=== PATIENT | female | born 1980 | race Caucasian/White ===

== ENCOUNTER 2018-04-28 14:53 | Emergency (ER) | payer OTHER ==
[~2018-04-28] VITALS: Ht 157.5 cm; Wt 82.5 kg
[~2018-04-28 14:53] MED LIST: ASCO1CAP3; ERGO500037 PO; PREN1CAP
[2018-04-28 15:01] VITALS: TEMP 37; Ht 157.5 cm; Wt 82.5 kg
[2018-04-28] MEDS ORDERED: SODIUM CHLORIDE 0.9% 1000ML 1,000 ML IV STA (15:25)
[2018-04-28] MEDS ORDERED: MULT-240 PO (15:41)
[2018-04-28] MEDS ORDERED: CHOL1000 PO (15:41)
--- NOTE | 2018-04-28 16:54 | DIAGNOSTIC IMAGING REPORT ---
HEAD CT NONCONTRAST CT DOSE: 679.75 mGycm HISTORY: Fall. Head injury. Evaluate for hemorrhage or pathology TECHNIQUE: Multiaxial CT images of the head were performed without the use of intravenous contrast. Automated exposure control was utilized for this study. A dose lowering technique was utilized adhering to the principles of ALARA. Comparison: Head CT 02/18/2018. Findings: The paranasal sinuses and mastoid air cells are clear. No acute calvarial fractures. Prior left posterior craniotomy. Left parietal scalp swelling. Right parietal approach ventriculostomy catheter terminates at the third ventricle. This remains unchanged. Interval placement of a right frontal approach ventriculostomy catheter which also terminates at the third ventricle. Mild ventricular megaly remains unchanged. There is no mass, hematoma, midline shift, acute infarct. Bilateral basal ganglia calcifications remain unchanged. Impression: 1. Left posterior scalp swelling. No acute intracranial hemorrhage. 2. Mild ventriculomegaly. This remains unchanged despite the presence of a new right frontal approach ventriculostomy catheter. Therefore, this could represent catheter malfunction. Electronically signed by: Sathya Carroll M.D. 04/28/2018 4:53 PM Dictated Date/Time: 04/28/2018 4:46 PM
[2018-04-28 17:13] LABS: BASO % 0.5 %; BASO ABS # 0.04 K/uL (0-0.2); EOS % 0.9 %; EOS ABS # 0.08 K/uL (0-0.5); HEMATOCRIT 41.4 % (37-47); HEMOGLOBIN 14.1 g/dL (12.0-16.0); IG# 0.02 K/uL (0.00-0.02); LYMPH ABS # 2.48 K/uL (1.2-3.4); MEAN CELL VOLUME 88.8 fL (80-100); MEAN CORPUSCULAR HEMOGLOBIN 30.3 pg (25-34); MEAN CORPUSCULAR HGB CONC 34.1 g/dl (32-36); MEAN PLATELET VOLUME 8.9 fL (7.4-10.4); MONO % 8.9 %; MONO ABS # 0.76 K/uL (0.11-0.59); NEUT % 60.5 %; NEUT ABS # 5.17 K/uL (1.4-6.5); PLATELET COUNT 316 K/uL (130-400); RED CELL DISTRIBUTION WIDTH CV 12.7 % (11.5-14.5); RED CELL DISTRIBUTION WIDTH SD 40.7 fL (36.4-46.3); WHITE BLOOD COUNT 8.55 K/uL (4.8-10.8)
[2018-04-28 17:27] LABS: CALCIUM 9.6 mg/dl (8.5-10.1); CREATININE 0.65 mg/dl (0.60-1.20)
[2018-04-28] MEDS ORDERED: METO25TA3 PO (17:30)
[2018-04-28] MEDS ORDERED: ATOR-22 PO (17:30)
[2018-04-28] MEDS ORDERED: FLUO10CA48 PO (17:30)
--- NOTE | 2018-04-28 18:11 | DIAGNOSTIC IMAGING REPORT ---
CHEST 2 VIEWS ROUTINE, SKULL <4 VIEWS, CERVICAL SPINE 2 OR 3 VIEWS, ABDOMEN 2 VIEWS HISTORY: vp strategic planning shunt, syncope/dizzy COMPARISON: Shunt series 02/18/2018. FINDINGS: Right frontal and right parietal approach ventriculostomy catheters which terminate at the midline. Left posterior craniotomy is again noted. Right-sided shunt tubing connects to the frontal approach catheter. The right parietal approach ventriculostomy catheter appears to have been disconnected. The right frontal approach catheter tubing is also seen within the right neck and courses into the abdomen. This terminates in the left lower quadrant. The tubing appears intact. There is an old shunt tube seen within the right neck which does not extend to the ventriculostomy catheters. This is also disconnected at the midline of the anterior chest. This tubing terminates in the left side of the abdomen. This is unchanged in the prior study. IMPRESSION: 1. The right parietal approach ventriculostomy catheter has been disconnected in the interval. 2. The right ventriculoperitoneal shunt tubing now connects to the right frontal approach ventriculostomy catheter. The tubing appears intact. This terminates in the left lower quadrant. 3. There is again noted an old disconnected shunt tube. Electronically signed by: Sathya Carroll M.D. 04/28/2018 6:09 PM Dictated Date/Time: 04/28/2018 6:01 PM
--- NOTE | 2018-04-28 18:36 | EMERGENCY ROOM VISIT NOTE ---
History Report prepared by Henna: Sheryl Hernandez Under the Supervision of: Dr. Ji Arvizu M.D. First contact with patient: 15:12 Chief Complaint: FALL Stated Complaint: HIT HEAD,FALL History of Present Illness The patient is a 37 year old female who presents to the Emergency Room with complaints of a fall today. Per mother, the patient has a new shunt. Per mother , the patient had a 6 hour shift today and states that the patient felt "foggy" and that the patient was unable to do tasks that she is normally able to do. Her mother states that this is the patient's first shift in awhile and states that her shifts are usually 4 hours long. The patient states that she fell out of her shower and hit her head today after work. The patient reports that she remembers being in the bathtub and denies losing consciousness. The patient currently denies nausea, numbness, tingling, shortness of breath, back pain, or pain anywhere. The patient also denies recent illness. Her mother states that the patient had a headache after the fall but the patient states that her headache is gone now. Per mother, the patient has intermittently been "foggy." recently. The patient's mother states that the patient has fallen out of the tub in the past. Her mother states that the patient has been following with neurology at [place] where the patient had an EEG done which showed no seizure activity. Per mother, the patient has also had intermittent vaginal spotting since October which is when the patient last had a menstrual cycle. Her mother states that the patient was supposed to have a D & C done in January but states that they did not want to interfere with the shunt. Her mother states that the patient is scheduled to have a D & C in late May. Per mother, the patient is on Fluoxetine, blood pressure medication, cholesterol medication, Vitamin D, and a one a day pill. Her mother states that the patient is not on any hormonal or seizure medications. Source of History: patient, parent Onset: today Position: other (generalized) Quality: other (fall) Associated Symptoms: + headache (resolved now), No LOC, No SOB, No back pain , No weakness, No numbness Review of Systems See HPI for pertinent positives and negatives. A total of ten systems were reviewed and were otherwise negative. Past Medical & Surgical Medical Problems: (1) Brain tumor (benign) (2) Presence AV shunt Family History FHx: cancer Social History Smoking Status: Never Smoker Marital Status: single Housing Status: lives with family Occupation Status: unemployed Current/Historical Medications Scheduled Atorvastatin (Lipitor), 20 MG PO HS Cholecalciferol (Vitamin D3), 1,000 INTER.UNIT PO DAILY Fluoxetine (Prozac), 10 MG PO QAM Metoprolol Succ (Toprol Xl) (Toprol-Xl), 25 MG PO HS Multiple Vitamins W/ Minerals (Womens One Daily), 1 TAB PO DAILY Allergies Coded Allergies: No Known Allergies (Unverified , 04/28/18) Physical Exam Vital Signs Date Time Temp Pulse Resp B/P (MAP) Pulse Ox O2 Delivery O2 Flow Rate FiO2 04/28/18 18:46 80 144/108 98 04/28/18 16:27 75 16 130/94 94 04/28/18 15:01 37.0 86 18 138/93 98 Room Air Physical Exam GENERAL: Awake, alertx3, well-appearing, in no distress HENT: Mild left occipital hematoma. No lacs. Right parietal FACILITIES MAINTENANCE MANAGER shunt appreciated. Oropharynx unremarkable. EYES: Normal conjunctiva. Sclera non-icteric. Extraocular motions are intact. Pupils are equal, round, and reactive to light. NECK: Supple. No nuchal rigidity. RESPIRATORY: Clear to auscultation. No wheezes. Normal respiratory effort. CARDIAC: Normal rate. Normal rhythm. Extremities warm and well perfused. GI: Soft, non-distended. No tenderness to palpation. No rebound or guarding. RECTAL: Deferred. MUSCULOSKELETAL: Atraumatic. Chest examination reveals no tenderness. LOWER EXTREMITIES: Calves are equal size bilaterally and non-tender. No edema NEURO: Normal sensorium. No sensory or motor deficits noted. No facial droop. No aphasia. Ambulatory SKIN: Warm and dry. No rash or jaundice noted. Medical Decision & Procedures ER Provider Diagnostic Interpretation: Radiology results as stated below per my review and radiologist interpretation: HEAD CT NONCONTRAST CT DOSE: 679.75 mGycm HISTORY: Fall. Head injury. Evaluate for hemorrhage or pathology TECHNIQUE: Multiaxial CT images of the head were performed without the use of intravenous contrast. Automated exposure control was utilized for this study. A dose lowering technique was utilized adhering to the principles of ALARA. Comparison: Head CT 02/18/2018. Findings: The paranasal sinuses and mastoid air cells are clear. No acute calvarial fractures. Prior left posterior craniotomy. Left parietal scalp swelling. Right parietal approach ventriculostomy catheter terminates at the third ventricle. This remains unchanged. Interval placement of a right frontal approach ventriculostomy catheter which also terminates at the third ventricle. Mild ventricular megaly remains unchanged. There is no mass, hematoma, midline shift, acute infarct. Bilateral basal ganglia calcifications remain unchanged. Impression: 1. Left posterior scalp swelling. No acute intracranial hemorrhage. 2. Mild ventriculomegaly. This remains unchanged despite the presence of a new right frontal approach ventriculostomy catheter. Therefore, this could represent catheter malfunction. Electronically signed by: Sathya Carroll M.D. 04/28/2018 4:53 PM Dictated Date/Time: 04/28/2018 4:46 PM CHEST 2 VIEWS ROUTINE, SKULL <4 VIEWS, CERVICAL SPINE 2 OR 3 VIEWS, ABDOMEN 2 VIEWS HISTORY: vp talent management shunt, syncope/dizzy COMPARISON: Shunt series 02/18/2018. FINDINGS: Right frontal and right parietal approach ventriculostomy catheters which terminate at the midline. Left posterior craniotomy is again noted. Right-sided shunt tubing connects to the frontal approach catheter. The right parietal approach ventriculostomy catheter appears to have been disconnected. The right frontal approach catheter tubing is also seen within the right neck and courses into the abdomen. This terminates in the left lower quadrant. The tubing appears intact. There is an old shunt tube seen within the right neck which does not extend to the ventriculostomy catheters. This is also disconnected at the midline of the anterior chest. This tubing terminates in the left side of the abdomen. This is unchanged in the prior study. IMPRESSION: 1. The right parietal approach ventriculostomy catheter has been disconnected in the interval. 2. The right ventriculoperitoneal shunt tubing now connects to the right frontal approach ventriculostomy catheter. The tubing appears intact. This terminates in the left lower quadrant. 3. There is again noted an old disconnected shunt tube. Electronically signed by: Sathya Carroll M.D. 04/28/2018 6:09 PM Dictated Date/Time: 04/28/2018 6:01 PM CHEST 2 VIEWS ROUTINE, SKULL <4 VIEWS, CERVICAL SPINE 2 OR 3 VIEWS, ABDOMEN 2 VIEWS HISTORY: vp talent management shunt, syncope/dizzy COMPARISON: Shunt series 02/18/2018. FINDINGS: Right frontal and right parietal approach ventriculostomy catheters which terminate at the midline. Left posterior craniotomy is again noted. Right-sided shunt tubing connects to the frontal approach catheter. The right parietal approach ventriculostomy catheter appears to have been disconnected. The right frontal approach catheter tubing is also seen within the right neck and courses into the abdomen. This terminates in the left lower quadrant. The tubing appears intact. There is an old shunt tube seen within the right neck which does not extend to the ventriculostomy catheters. This is also disconnected at the midline of the anterior chest. This tubing terminates in the left side of the abdomen. This is unchanged in the prior study. IMPRESSION: 1. The right parietal approach ventriculostomy catheter has been disconnected in the interval. 2. The right ventriculoperitoneal shunt tubing now connects to the right frontal approach ventriculostomy catheter. The tubing appears intact. This terminates in the left lower quadrant. 3. There is again noted an old disconnected shunt tube. Electronically signed by: Sathya Carroll M.D. 04/28/2018 6:09 PM Dictated Date/Time: 04/28/2018 6:01 PM CHEST 2 VIEWS ROUTINE, SKULL <4 VIEWS, CERVICAL SPINE 2 OR 3 VIEWS, ABDOMEN 2 VIEWS HISTORY: vp talent management shunt, syncope/dizzy COMPARISON: Shunt series 02/18/2018. FINDINGS: Right frontal and right parietal approach ventriculostomy catheters which terminate at the midline. Left posterior craniotomy is again noted. Right-sided shunt tubing connects to the frontal approach catheter. The right parietal approach ventriculostomy catheter appears to have been disconnected. The right frontal approach catheter tubing is also seen within the right neck and courses into the abdomen. This terminates in the left lower quadrant. The tubing appears intact. There is an old shunt tube seen within the right neck which does not extend to the ventriculostomy catheters. This is also disconnected at the midline of the anterior chest. This tubing terminates in the left side of the abdomen. This is unchanged in the prior study. IMPRESSION: 1. The right parietal approach ventriculostomy catheter has been disconnected in the interval. 2. The right ventriculoperitoneal shunt tubing now connects to the right frontal approach ventriculostomy catheter. The tubing appears intact. This terminates in the left lower quadrant. 3. There is again noted an old disconnected shunt tube. Electronically signed by: Sathya Carroll M.D. 04/28/2018 6:09 PM Dictated Date/Time: 04/28/2018 6:01 PM CHEST 2 VIEWS ROUTINE, SKULL <4 VIEWS, CERVICAL SPINE 2 OR 3 VIEWS, ABDOMEN 2 VIEWS HISTORY: vp talent management shunt, syncope/dizzy COMPARISON: Shunt series 02/18/2018. FINDINGS: Right frontal and right parietal approach ventriculostomy catheters which terminate at the midline. Left posterior craniotomy is again noted. Right-sided shunt tubing connects to the frontal approach catheter. The right parietal approach ventriculostomy catheter appears to have been disconnected. The right frontal approach catheter tubing is also seen within the right neck and courses into the abdomen. This terminates in the left lower quadrant. The tubing appears intact. There is an old shunt tube seen within the right neck which does not extend to the ventriculostomy catheters. This is also disconnected at the midline of the anterior chest. This tubing terminates in the left side of the abdomen. This is unchanged in the prior study. IMPRESSION: 1. The right parietal approach ventriculostomy catheter has been disconnected in the interval. 2. The right ventriculoperitoneal shunt tubing now connects to the right frontal approach ventriculostomy catheter. The tubing appears intact. This terminates in the left lower quadrant. 3. There is again noted an old disconnected shunt tube. Electronically signed by: Sathya Carroll M.D. 04/28/2018 6:09 PM Dictated Date/Time: 04/28/2018 6:01 PM Laboratory Results 04/28/18 16:15 Red Blood Count 4.66, Mean Corpuscular Volume 88.8, Mean Corpuscular Hemoglobin 30.3, Mean Corpuscular Hemoglobin Concent 34.1, Mean Platelet Volume 8.9, Neutrophils (%) (Auto) 60.5, Lymphocytes (%) (Auto) 29.0, Monocytes (%) (Auto) 8.9, Eosinophils (%) (Auto) 0.9, Basophils (%) (Auto) 0.5, Neutrophils # (Auto) 5.17, Lymphocytes # (Auto) 2.48, Monocytes # (Auto) 0.76, Eosinophils # (Auto) 0.08, Basophils # (Auto) 0.04 8/7/18 16:15 Test 04/28/18 16:15 04/28/18 18:20 White Blood Count 8.55 K/uL (4.8-10.8) Red Blood Count 4.66 M/uL (4.2-5.4) Hemoglobin 14.1 g/dL (12.0-16.0) Hematocrit 41.4 % (37-47) Mean Corpuscular Volume 88.8 fL (80-100) Mean Corpuscular Hemoglobin 30.3 pg (25-34) Mean Corpuscular Hemoglobin Concent 34.1 g/dl (32-36) Platelet Count 316 K/uL (130-400) Mean Platelet Volume 8.9 fL (7.4-10.4) Neutrophils (%) (Auto) 60.5 % Lymphocytes (%) (Auto) 29.0 % Monocytes (%) (Auto) 8.9 % Eosinophils (%) (Auto) 0.9 % Basophils (%) (Auto) 0.5 % Neutrophils # (Auto) 5.17 K/uL (1.4-6.5) Lymphocytes # (Auto) 2.48 K/uL (1.2-3.4) Monocytes # (Auto) 0.76 K/uL (0.11-0.59) Eosinophils # (Auto) 0.08 K/uL (0-0.5) Basophils # (Auto) 0.04 K/uL (0-0.2) RDW Standard Deviation 40.7 fL (36.4-46.3) RDW Coefficient of Variation 12.7 % (11.5-14.5) Immature Granulocyte % (Auto) 0.2 % Immature Granulocyte # (Auto) 0.02 K/uL (0.00-0.02) Anion Gap 9.0 mmol/L (3-11) Est Creatinine Clear Calc Drug Dose 120.3 ml/min Estimated GFR () 133.3 Estimated GFR (Non- 115.0 BUN/Creatinine Ratio 21.1 (10-20) Calcium Level 9.6 mg/dl (8.5-10.1) Human Chorionic Gonadotropin, Qual NEG (NEG) Urine Color YELLOW Urine Appearance CLEAR (CLEAR) Urine pH 5.0 (4.5-7.5) Urine Specific Ebony 1.016 (1.000-1.030) Urine Protein NEG (NEG) Urine Glucose (UA) NEG (NEG) Urine Ketones NEG (NEG) Urine Occult Blood NEG (NEG) Urine Nitrite NEG (NEG) Urine Bilirubin NEG (NEG) Urine Urobilinogen NEG (NEG) Urine Leukocyte Esterase NEG (NEG) Laboratory results reviewed by me Medications Administered Medications (Trade) Dose Ordered Sig/Haven Route Start Time Stop Time Status Last Admin Dose Admin Sodium Chloride 1,000 ml @ 999 mls/hr Q1H1M STAT IV 04/28/18 15:25 04/28/18 16:25 DC 04/28/18 16:24 999 MLS/HR ECG Per My Interpretation Indication: other (near syncope) Rate (beats per minute): 80 Rhythm: normal sinus Findings: T-wave inversion (in lead III), other (no ST segment elevation) Change: no significant change (compared to 02/18/18) ED Course 1513: The patient was evaluated in room C12A. A complete history and physical exam was performed. 1525: Ordered Sodium Chloride 1000 ml @ 999 mls/hr IV. 1820: I reevaluated the patient. Discussed results and discharge instructions: She verbalized understanding and agreement. The patient is ready for discharge. Medical Decision Differential diagnosis: Etiologies such as migraine headache, meningitis, sinusitis, arrhythmia, electrolyte abnormality, CO exposure, ICH, SAH, infection, tumor, headache, sinus thrombosis, arterial dissection, as well as others were entertained. Patient presents after a syncopal type episode occurring today in the bathroom. Is a history of FACILITIES MAINTENANCE MANAGER shunt for brain tumor has been having issues with fogginess. Denies losing consciousness. Brief headache after the event but not now. No shaking reported. Imaging of the head was completed with mild ventriculomegaly unchanged despite the new FACILITIES MAINTENANCE MANAGER shunt placed. The intermittent nature of her symptoms did not seem consistent with acute hydrocephalus or meningitis. Recent evaluation by neurosurgery and neurology in the last month including negative EEG. Lab work is unremarkable. EKG is unremarkable. She is under continued care of multiple physicians and specialist at [facility] recommend continued outpatient follow-up there which she and mother are in agreement with. Discussed return criteria. Advised to abstain from driving given this event until further follow-up. Patient and mother are in agreement with this plan. Work note given. Head Trauma GCS Score: 15 Medication Reconcilliation Current Medication List: was personally reviewed by me Blood Pressure Screening Patient's blood pressure: Elevated blood pressure Blood pressure disposition: Elevated BP felt to be situational Impression Primary Impression: Fall Additional Impression: Near syncope Scribe Attestation The scribe's documentation has been prepared under my direction and personally reviewed by me in its entirety. I confirm that the note above accurately reflects all work, treatment, procedures, and medical decision making performed by me. Departure Information Dispostion Home / Self-Care Referrals No Doctor, Assigned (PCP) Chris, KRANTHI Farnsworth Forms HOME CARE DOCUMENTATION FORM, IMPORTANT VISIT INFORMATION Patient Instructions My [facility] Additional Instructions Continue to maintain good hydration and eat regular meals. Continue have close follow-up with your doctors in [place] in the next week. Please be careful to avoid any significant falls. Would refrain from driving until these events were further explained. If any time you have new symptoms or concerns please feel free to return here for reevaluation. May use tylenol or motrin for headache if needed. Problem Qualifiers Primary Impression: Fall Encounter type: initial encounter Qualified Codes: W19.XXXA - Unspecified fall, initial encounter
[2018-04-28 18:46] VITALS: BP 144/108; PULSE 80; O2SAT 98
== END 2018-04-28 18:46 | disposition home or self-care (01) ==
LOC: C.EDB 14:54 → C.EDC 18:46
DX: R55 Syncope and collapse (principal); W19.XXXA Unspecified fall, initial encounter; D33.2 Benign neoplasm of brain, unspecified